=== PATIENT | female | born 1980 | race Two or more races ===

== ENCOUNTER 2025-02-02 16:58 | Emergency (ER) | payer OTHER ==
[~2025-02-02] VITALS: Ht 157.5 cm; Wt 90.7 kg
[2025-02-02 17:20] VITALS: TEMP 98.1
[2025-02-03 07:27] VITALS: BP 119/72; O2SAT 98
== END 2025-02-03 07:29 | disposition home or self-care (01) ==
LOC: ER 17:12
DX: F10.129 Alcohol abuse with intoxication, unspecified (principal); Y90.9 Presence of alcohol in blood, level not specified
CPT/HCPCS: 82962-TC